=== PATIENT | female | born 1975 | race Caucasian/White ===

== ENCOUNTER 2017-08-07 19:15 | Emergency (ER) | payer BC ==
[~2017-08-07] VITALS: Ht 162.6 cm; Wt 89.9 kg
[~2017-08-07 19:15] MED LIST: HYDR-3498 PO; OMEP40CA3 PO; PRED20TA PO; RANI150T9 PO
[2017-08-07 19:19] VITALS: Ht 162.6 cm; Wt 89.9 kg
[2017-08-07] MEDS ORDERED: ALBUTEROL 0.083% (NEB) 2.5 MG/3 ML AMP HHN STA (19:36)
[2017-08-07] MEDS ORDERED: DEXAMETHASONE 10 MG/ML 1 ML INJ IM ONE (20:00)
[2017-08-07] MEDS ORDERED: ALBU8.5H3 INH (22:17)
[2017-08-07] MEDS ORDERED: UDROBDM PO (22:17)
[2017-08-07] MEDS ORDERED: PRED20TA PO (22:17)
[2017-08-07] MEDS ORDERED: AZIT250T94 PO (22:20)
--- NOTE | 2017-08-07 22:20 | ERD ---
ER Documentation Chief Complaint Chief Complaint cough x 1 week HPI This 42-year-old female presents with productive cough last week. Also shortness of breath. She denies measured fevers although feels like she may have had a fever. She denies any vomiting abdominal pain or chest pain. She denies history of asthma. ROS All systems reviewed and are negative except as per history of present illness. Medications Home Meds Active Scripts Albuterol Sulfate* (Proair HFA*) 8.5 Gm Hfa.aer.ad, 2 PUFF INH Q4, #1 INHALER Prov:JU AMOS MD 08/07/17 Guaifenesin-Dextromethorphan* (Robitussin* DM) 100MG/10MG/5ML Syrup, 5 ML PO Q4H Y for COUGH for 4 Days, ML Prov:JU AMOS MD 08/07/17 Prednisone* (Prednisone*) 20 Mg Tab, 40 MG PO DAILY for 4 Days, TAB Start August 08, 2017 Prov:JU AMOS MD 08/07/17 Ranitidine Hcl* (Zantac*) 150 Mg Tablet, 150 MG PO BID Y for epigastric pain, # 30 TAB Prov:ORLY OCASIO. [employer]PERVISING [employer] 10/19/15 Omeprazole* (Prilosec*) 40 Mg Capsule.dr, 40 MG PO DAILY for 14 Days, CAP Prov:ORLY OCASIO. SUPERVISING [employer]OR TRA[employer]ER 10/19/15 Hydrocodone Bit-Acetaminophen* ([place]*) 5-325 Mg Tab, 1 TAB PO Q6 Y for PAIN, # 10 TAB Prov:MARILYN QUAHC PA-C 07/18/15 Prednisone* (Prednisone*) 20 Mg Tab, 40 MG PO DAILY for 4 Days, TAB Prov:MARILYN QUACH PA-C 07/18/15 Allergies Allergies: Coded Allergies: No Known Allergy (Unverified , 07/18/15) PMhx/Soc History of Surgery: Yes (cholecystectomy) Anesthesia Reaction: No Hx Neurological Disorder: No Hx Respiratory Disorders: No Hx Cardiac Disorders: No Hx Psychiatric Problems: No Hx Miscellaneous Medical Probl: No Hx Alcohol Use: No Hx Substance Use: No Hx Tobacco Use: No Smoking Status: Never smoker Physical Exam Vitals Vital Signs Date Time Temp Pulse Resp B/P Pulse Ox O2 Delivery O2 Flow Rate FiO2 08/07/17 19:50 75 20 98 21 08/07/17 19:19 97.4 90 20 135/83 97 Physical Exam Const: [] Alert, [id number]. Head: Atraumatic Eyes: Normal Conjunctiva ENT: Normal External Ears, Nose and Mouth. Ins and oropharynx normal. Neck: Full range of motion..~ No meningismus. Resp: Clear to auscultation bilaterally. Diffuse mild wheezing and coarse breath sounds. No rales or retractions appreciated. Cardio: Regular rate and rhythm, no murmurs Abd: Soft, non tender, non distended. Normal bowel sounds Skin: No petechiae or rashes Back: No midline or flank tenderness Ext: No cyanosis, or edema Neur: Awake and alert Psych: Normal Mood and Affect Results 24 hrs Current Medications Medications (Trade) Dose Ordered Sig/Luz Route PRN Reason Start Time Stop Time Status Last Admin Dose Admin Dexamethasone (Decadron) 10 mg ONCE ONCE IM 08/07/17 20:00 08/07/17 20:01 DC 08/07/17 20:10 Albuterol (Proventil 0.083% (Neb)) 5 mg ONCE STAT HHN 08/07/17 19:36 08/07/17 19:38 DC 08/07/17 19:50 Procedures/MDM Patient was given albuterol treatment and prednisone 60 mg by mouth. Chest X-ray 1V Interpreted by me: Soft Tissue: No acute abnormalities Bones: No acute abnormalities Mediastinum/Cardiac Silhouette/Lungs: [No acute abnormalities] depression have normal 1 view chest x-ray She presents with coughing wheezing and coarse breath sounds for the last week. She is no signs of pneumonia, no risk factors, additional signs to suggest pulmonary pleasant, there is no evidence of abdominal pain or hypoxemia or respiratory stress. She may have a viral illness but given the duration of productive cough will be treated with prednisone, ProAir, Zithromax, return precautions and primary care follow-up. The patient was stable with no new complaints during the ER course. Clinically, there is no current evidence to suggest meningitis, sepsis, acute abdomen, pneumonia, acute coronary syndrome, pulmonary embolism, or any other emergent condition appearing to require further evaluation or hospitalization. The patient should certainly return for any new or worsening symptoms per the aftercare instructions. They should otherwise follow-up with her primary care doctor for reevaluation this week. Departure Diagnosis: Primary Impression: Wheezing Additional Impression: Cough Condition: Stable Patient Instructions: Bronchitis With Wheezing (Adult) Additional Instructions: Cheque otro vez con [facility] doctor prim[facility] en el proximo choe or regresa para mas o nueva simptomas. probablamente un virus que dura 2-4 choe. cheque otro vez en el proximo katja para mas simptomas- vomito, dolor, tyler, problemas con respirando, o con [facility] doctor primario. JU AMOS MD Aug 07, 2017 22:20
--- NOTE | 2017-08-07 22:40 | RADRPT ---
PROCEDURE: XR Chest. CLINICAL INDICATION: Dyspnea. TECHNIQUE: Single frontal chest x-ray. COMPARISON: None. FINDINGS: The lungs are clear. No focal opacification is seen. The cardiomediastinal silhouette is unremarka ble. The osseous structures are unremarkable. IMPRESSION: 1. There is no acute cardiopulmonary process. RPTAT: PP .Savage Baker MD, MD Date Time Electronically viewed and signed by .Savage Baker MD, MD on 08/07/2017 22:40 .B/
== END 2017-08-07 23:01 | disposition home or self-care (01) ==
LOC: FTE 19:15
DX: R06.2 Wheezing (principal)
CPT/HCPCS: 71010; 94664; 96372; J1100; Z7502; Z7610; 94640

== ENCOUNTER 2017-09-28 16:22 | Emergency (ER) | END 2017-09-28 21:46 | disposition home or self-care (01) ==